=== PATIENT | female | born 1970 | race Caucasian/White ===

== ENCOUNTER 2021-03-28 07:53 | Outpatient (REF) | payer OTHER, SELFPAY ==
--- NOTE | ~2021-03-28 | MM_ITS ---
EXAMINATION: MM SCREENING DIGITAL BREAST TOMOSYNTHESIS, BILATERAL CLINICAL INFORMATION: Screening. Asymptomatic. The lifetime risk of breast cancer based on the Tyrer-Cuzick Model is 9%. COMPARISON: Mammography: 03/26/2020, 07/16/2018, 06/19/2015 TECHNIQUE: Digital breast tomosynthesis is performed in both the craniocaudal and mediolateral oblique views along with computer-aided detection (CAD). Synthesized 2D images are generated from the tomosynthesis. FINDINGS: There are scattered areas of fibroglandular density (ACR BI-RADS breast composition Category b). There are no significant masses, abnormal calcifications, or other abnormalities. Parenchymal pattern is similar to prior studies. No developing density. No significant changes. MM/MM tomosynthesis screening BI IMPRESSION: No mammographic evidence of malignancy. ASSESSMENT: BI-RADS 1: Negative RECOMMENDATION: Routine annual mammography screening. This patient's information was entered into a reminder system with a target due date for their next mammogram.
== END 2021-03-28 07:54 | disposition home or self-care (01) ==
LOC: HO.MAMMO 07:53
PROVIDERS: PCP Internal Medicine; Visit Provider Internal Medicine
DX: Z12.31 Encounter for screening mammogram for malignant neoplasm of breast (principal)
CPT/HCPCS: 77063; 77067

== ENCOUNTER 2025-06-15 15:12 | Outpatient (AMB) | payer OTHER, SELFPAY ==
--- NOTE | 2025-06-15 15:21 | A.OFFPC_ITS ---
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 Required: No Accompanied by: Self / Same As Patient Allergies ciprofloxacin (From CIPRO) Allergy (Intermediate, Verified 06/15/25 16:18) HIVES Sulfa (Sulfonamide Antibiotics) (SULFA (SULFONAMIDE ANTIBIOTICS)) Allergy (Intermediate, Verified 06/15/25 16:18) HIVES, rash tramadol (From ULTRAM) Allergy (Intermediate, Verified 06/15/25 16:18) HIVES sulfamethoxazole (From Bactrim) Allergy (Unknown, Verified 06/15/25 16:18) RASH trimethoprim (From Bactrim) Allergy (Unknown, Verified 06/15/25 16:18) RASH venlafaxine Allergy (Unknown, Verified 06/15/25 16:18) rash Environmental Allergy (Unknown, Uncoded 06/15/25 16:18) Unknown Medication List - Last Reconciled 06/15/25 by Jaqui Zayas PA-C albuterol sulfate 90 mcg/actuation 2 inhalations inhalation Q6H PRN amlodipine 5 mg PO DAILY escitalopram oxalate 5 mg PO DAILY gabapentin 100 mg PO BEDTIME leflunomide 20 mg PO DAILY levothyroxine 50 mcg PO QAM meloxicam 15 mg PO DAILY metformin 500 mg PO rimegepant (Nurtec ODT) 75 mg PO Q OTHER DAY Tobacco use date assessed: 06/15/25 Dental Screening Dental Screen Date: 06/15/25 Did you have a dental visit in the last 12 months?: No Did you have a dental problem in the last 6 months where you did not have access to dental care?: No Was dental information given to patient?: Patient has dentist (has dentures) HPI HPI Comments History of Present Illness Details History of Present Illness The patient is a 55-year-old individual presenting for an annual physical exam. The patient has a history of anxiety, premature menopause, impaired fasting glucose, mixed dyslipidemia, seasonal allergies, endometriosis, hypothyroidism, obesity, and genital herpes. The patient's only prior surgery was a laparoscopic procedure. The patient reports a family history of prostate cancer in the father. The mother is alive and has a history of asthma, diabetes, early menopause, stroke, seizures, and endometrial cancer. Regarding health maintenance, the patient's last mammogram was over a year ago and a Cologuard test was negative two years ago. The patient does not currently have a sheet metal worker helper. Current medications include albuterol for asthma, amlodipine 5 mg for blood pressure, escitalopram 5 mg, levothyroxine 50 mcg, meloxicam 15 mg, metformin 500 mg, and Nurtec ODT. The patient is out of gabapentin 100 mg and requires a refill. Leflunomide is no longer being taken. The patient reports experiencing chronic, generalized pain and was previously told it could be fibromyalgia. The patient has also had a cough for approximately one week. The patient had a history of mitral valve prolapse when younger but has not had subsequent follow-up. The patient is a non-smoker. The patient denies any leg swelling with amlodipine use, black or bloody stools, unintentional weight loss, chest pain, or shortness of breath with exertion or when lying flat. Social History - Employment: The patient works in [employer]. - Substance Use: The patient is a non-sm oker. [facility] Medical History Chronic pain syndrome Bronchitis Healthcare maintenance Annual physical exam Heart murmur Severe obesity with body mass index (BMI) of 36.0 to 36.9 with serious comorbidity Type 2 diabetes mellitus with hemoglobin A1c goal of less than 7.0% Joint pain Joint pain in fingers of both hands Anxiety Menopause, premature Obesity Impaired fasting glucose Mixed dyslipidemia Environmental and seasonal allergies Herpes genitalis Endometriosis Acquired hypothyroidism Surgical History Status post laparoscopic surgery Family History Father Cancer of prostate Mother Asthma Early menopause occurring in patient age younger than 45 years Stroke Diabetes mellitus Seizure Endometrial cancer Maternal Grandfather No problems noted. Maternal Grandfather No problems noted. Brother No problems noted. Social History Housing: Apartment Alcohol intake: current Alcohol intake frequency: holidays/special occasions only Patient Tobacco Use Status: Never used Tobacco service: No Current occupational status: employed Cognitive needs: No Hearing needs: No Vision needs: Yes (rx glasses) Questionnaire PHQ-9 Over the last 2 weeks, how often have you been bothered by any of the following problems? 1. Little interest or pleasure in doing things: not at all 2. Feeling down, depressed, or hopeless: not at all 3. Trouble falling or staying asleep, or sleeping too much: not at all 4. Feeling tired or having little energy: not at all 5. Poor appetite or overeating: not at all 6. Feeling bad about yourself - or that you are a failure or have let yourself or your family down: not at all 7. Trouble concentrating on things, such as reading the newspaper or watching television: not at all 8. Moving or speaking so slowly that other people could have noticed. Or the opposite - being so fidgety or restless that you have been moving around a lot more than usual: not at all 9. Thoughts that you would be better off or of hurting yourself in some way: not at all Total score: 0 Depression Screening Interpretation: Negative Depression Screening Done: Yes 11199 - PHQ-9 Billing: Yes Source: Developed by Drs. Natalio Shah, Kia Mckenzie, Luis Grey and colleagues, with an educational jake from [employer]. Thrive Questionnaire Date Thrive assessed: 06/15/25 I am a: Patient What is your living situation today?: I have a steady place to live Within the past 12 months, did the food you bought not last and you didn't have the money to get more?: Never true Within the past 12 months, did you worry whether your food would run out before you got money to buy more?: Never true Do you have trouble paying for medicines?: No Do you have trouble getting transportation to medical appointments?: No Do you have trouble paying your heating and electricity bill?: No Do you have trouble taking care of your child, family member or friend?: No Do you have trouble with day-to-day activities such as bathing, preparing meals, shopping, managing finances, etc.?: No Are you currently unemployed and looking for a job?: No Are you interested in more education?: No Please select the resources that you would like help with: None THRIVE Score: 0 AUDIT C Alcohol Use Questionnaire (AUDIT-C) 1. How often do you have a drink containing alcohol?: Monthly or less 2. How many drinks containing alcohol do you have on a typical day when you are drinking?: 1 or 2 3. How often do you have six or more drinks on one occasion?: Never Total Score: 1 Score Reviewed/Action Taken: No RITESH-7 AMB Questionnaire RITESH-7 Date RITESH - 7 assessed: 06/15/25 Feeling nervous, anxious, or on edge: 0 = Not at all Not being able to stop or control worryin = Not at all Worrying too much about different things: 0 = Not at all Trouble relaxin = Not at all Being so restless that it is hard to sit still: 0 = Not at all Becoming easily annoyed or irritable: 0 = Not at all Feeling afraid as if something awful might happen: 0 = Not at all Total RITESH-7 score (0-4 normal; 5-9 mild; 10-14 moderate; 15-21 severe): 0 Source: Developed by Drs. Natalio Shah, Kia Mckenzie, Luis Grey and colleagues, with an educational jake from [employer]. RITESH-7 Assessment Billing RITESH-7 Assessment Tool: RITESH-7 Assessment 35808 Review of Systems Narrative Review of Systems - General: Denies unintentional weight loss. - Respiratory: Reports a cough for the past week. Denies shortness of breath on exertion or orthopnea. - Cardiovascular: Denies chest pain or leg swelling. - Gastrointestinal: Denies black or bloody stools. - Musculoskeletal: Reports generalized joint pain. Const All systems reviewed & are unremarkable except as noted in HPI and below Physical exam (Primary Care) Vital Signs: Last Vital Signs Temp 98.1 F 06/15/25 16:03 Pulse 94 06/15/25 16:03 Resp 14 06/15/25 16:03 BP 143/67 H 06/15/25 16:03 Pulse Ox 99 06/15/25 16:03 Oxygen Delivery Method Room Air 06/15/25 16:03 Care Plan Goal for BP management: <140/90 patient to continue taking her amlodipine 5 mg keep a blood pressure diary and return in 2 weeks with blood pressure diary BMI result Body Mass Index 36.7 BMI Assessment/Plan discussion: High BMI High, discussed plan: lifestyle, weight reduction, dietary, physical activity, alcohol moderation and other Tobacco/Smoking Status: Tobacco use Status Tobacco use date assessed 06/15/25 06/15/25 15:23 Patient Tobacco Use Status Never used Tobacco 06/15/25 16:12 PHQ-9: PHQ-9 Score PHQ-9: Total score 0 06/15/25 16:20 Depression Screening Interpretation: Negative Thrive Assessment: Date of Thrive Assessment Date Thrive assessed 06/15/25 06/15/25 15:23 Narrative Physical Exam Appearance: Alert. Oriented X3. No acute distress. Head: Normal external exam. Normocephalic. Atraumatic. Eyes: Pupils are equal, round, and reactive to light. Extraocular movements intact. Conjunctiva and sclera normal. Eyelids normal. Ears: External auditory canal normal. Tympanic membranes normal. Only a little bit of wax noted; recommend peroxide for cleaning. Throat: Pharynx normal. Uvula midline. Moist mucous membranes. Throat slightly congested; patient has been coughing for about a week. Neck: Normal inspection. Neck supple. Full range of motion. No adenopathy. Thyroid Normal. No meningeal signs. No neck mass noted. Cardiovascular: Normal heart rate and rhythm. Heart sound normal. Slight murmur noted. No leg swelling. Blood pressure was 143/67 initially, then 147/79 upon retake. Pulse 83. Plan to monitor blood pressure at home for two weeks. Respiratory: No respiratory distress. Painless inspiration. Breath sounds slightly congested, indicating possible bronchitis. No wheezes/rales/rhonchi noted. Chest nontender. No accessory muscle usage noted or decreased air movement noted. Abdomen: Soft and nontender. Bowel sounds normal in all 4 quadrants. No distention noted. No organomegaly noted. No visible injury noted. Back: No costovertebral angle tenderness. Full range of motion noted. Skin: Skin warm and dry. Normal skin color. Normal skin turgor. No rashes/lesions/lacerations noted. Bruise on finger from previous injury. Extremities: No lower extremity edema. Extremities exhibit normal range of motion. Extremities nontender. Neuro: Oriented X 3. No motor deficit. No sensory deficit. Reflexes normal. Results AMB Hemoglobin A1c AMB Hemoglobin A1c 5.8 % Last Edit by SURAJ Ladd on 06/15/25 16:29 Results Reviewed Results Reviewed: Results - Labs: Hemoglobin A1c is 5.8%. Coding Level of Care Code New Pt Level 4 (39317) New Pt Prev Care 40-64y(13733) Diagnoses Annual physical exam Z00.00 Healthcare maintenance Z00.00 Bronchitis J40 Heart murmur R01.1 Chronic pain syndrome G89.4 Severe obesity with body mass index (BMI) of 36.0 to 36.9 with serious comorbidity E66.01; Z68.36 Additional Codes PHQ-9 - 26453 - PHQ-9 Billing: Yes ([id number]) RITESH-7 Assessment Billing - RITESH-7 Assessment Tool: RITESH-7 Assessment 29645 ([id number]) Assessment & Plan Assessment & Plan (1) Annual physical exam: Code(s): Z00.00 - Encounter for general adult medical examination without abnormal findings Category: Medical (2) Healthcare maintenance: Code(s): Z00.00 - Encounter for general adult medical examination without abnormal fin dings Category: Medical Plan: A referral will be placed for a mammogram and to establish care with a gy necologist. A discussion was had about repeating the Cologuard test as it has been two years since the last one. Comprehensive fasting blood work will be ordered, including a CBC, CMP, magnesium, ESR, CRP, lipid panel, TSH, urinalysis with microalbumin, vitamin B12, and vitamin D. The influenza vaccine will be deferred for two weeks until the patient's acute illness resolves. (3) Bronchitis: Code(s): J40 - Bronchitis, not specified as acute or chronic Category: Medical Plan: The patient reports a cough for one week and has congested lungs on exam, consistent with acute bronchitis. A 7 to 10-day course of Augmentin will be prescribed. (4) Heart murmur: Code(s): R01.1 - Cardiac murmur, unspecified Category: Medical Plan: A slight murmur was noted on cardiac auscultation, and the patient reports a history of mitral valve prolapse. An echocardiogram will be ordered to further evaluate the murmur. (5) Chronic pain syndrome: Code(s): G89.4 - Chronic pain syndrome Category: Medical Plan: The patient reports chronic, generalized pain, with a previous suspected diagnosis of fibromyalgia. To investigate for an underlying autoimmune disorder, an MELISSA and rheumatoid factor will be ordered. (6) Severe obesity with body mass index (BMI) of 36.0 to 36.9 with serious comorbidity: Code(s): E66.01 - Morbid (severe) obesity due to excess calories; Z68.36 - Body mass index [BMI] 36.0-36.9, adult Category: Medical Plan: The patient has a BMI of 36, classifying as obesity. The option of a weight-loss injection, Zepbound, was discussed, and a prescription will be sent to determine insurance coverage. If not approved, a referral to a weight asset management coordinator will be considered. Plan Plan Patient was informed and verbally consented to the use of an ambient scribe for clinic note documentation during this visit. 1. Health Maintenance A referral will be placed for a mammogram and to establish care with a sheet metal worker helper. A discussion was had about repeating the Cologuard test as it has been two years since the last one. Comprehensive fasting blood work will be ordered, including a CBC, CMP, magnesium, ESR, CRP, lipid panel, TSH, urinalysis with microalbumin, vitamin B12, and vitamin D. The influenza vaccine will be deferred for two weeks until the patient's acute illness resolves. 2. Hypertension The patient's blood pressure was elevated on two separate readings during the visit. The patient will monitor blood pressure at home for two weeks and maintain a log. A follow-up visit is scheduled in two weeks to review the blood pressure diary and determine if an increase in the amlodipine dosage is necessary. 3. Acute Bronchitis The patient reports a cough for one week and has congested lungs on exam, consistent with acute bronchitis. A 7 to 10-day course of Augmentin will be prescribed. 4. Heart Murmur A slight murmur was noted on cardiac auscultation, and the patient reports a history of mitral valve prolapse. An echocardiogram will be ordered to further evaluate the murmur. 5. Chronic Pain Syndrome The patient reports chronic, generalized pain, with a previous suspected diagnosis of fibromyalgia. To investigate for an underlying autoimmune disorder, an MELISSA and rheumatoid factor will be ordered. 6. Obesity The patient has a BMI of 36, classifying as obesity. The option of a weight-loss injection, Zepbound, was discussed, and a prescription will be sent to determine insurance coverage. If not approved, a referral to a weight asset management coordinator will be considered. 7. Medication Reconciliation Refills for gabapentin and the albuterol inhaler will be sent to the patient's preferred pharmacy at [facility]. The patient confirmed having an adequate supply of amlodipine, escitalopram, levothyroxine, meloxicam, metformin, and Nurtec. Leflunomide, which the patient is no longer taking, will be removed from the active medication list. Discussion Notes I informed the patient that the hemoglobin A1c of 5.8% places the patient in the prediabetic range. I discussed the elevated blood pressure readings and instructed the patient to monitor them at home for two weeks before a follow-up to assess the need for adjusting the amlodipine. I explained that a slight heart murmur was detected and that an echocardiogram will be ordered for further evaluation, given the patient's reported history of mitral valve prolapse. For the chronic widespread pain, I am ordering autoimmune markers including an MELISSA and rheumatoid factor to rule out an underlying rheumatologic condition. I diagnosed the patient's cough and congestion as acute bronchitis and prescribed a course of Augmentin. We reviewed weight management options, including Zepbound, and I will submit a prescription to assess for insurance coverage. I outlined the comprehensive lab work ordered for the annual exam and informed the patient that I would call with the results within 24-48 hours of them being finalized. We agreed to defer the influenza vaccine until the follow-up appointment in two weeks, once the bronchitis has resolved. Orders: Orders Lipid Panel Today Z00.00 - Encounter for general adult medical examination without abnormal findings UA CC w/rflx Micro + Cult Today Z00.00 - Encounter for general adult medical examination without abnormal findings Vitamin B12 and Folate Today Z00.00 - Encounter for general adult medical examination without abnormal findings MM screening mammo BI Today Z12.31 - Encounter for screening mammogram for malignant neoplasm of breast C Reactive Protein Today Z00.00 - Encounter for general adult medical examination without abnormal findings Complete Blood Count Auto Diff Today Z00.00 - Encounter for general adult medical examination without abnormal findings Comprehensive [place]. Panel Fast Today Z00.00 - Encounter for general adult medical examination without abnormal findings Erythrocyte Sedimentation Rate Today Z00.00 - Encounter for general adult medical examination without abnormal findings Magnesium Today Z00.00 - Encounter for general adult medical examination without abnormal findings TSH reflex Free T4 Today Z00.00 - Encounter for general adult medical examination without abnormal findings Vitamin D 25-OH Total Today Z00.00 - Encounter for general adult medical examination without abnormal findings Microalbumin, Random (w Creat) Today E11.9 - Type 2 diabetes mellitus without complications MELISSA Reflex Titer and Pattern Today M25.50 - Pain in unspecified joint Rheumatoid Factor Today M25.50 - Pain in unspecified joint AMB Hemoglobin A1c Today E11.9 - Type 2 diabetes mellitus without complications CA echo transthoracic complete Today E78.2 - Mixed hyperlipidemia, R01.1 - Cardiac murmur, unspecified Medications: New gabapentin 100 mg PO BEDTIME 90 caps 3RF tirzepatide (weight loss) (Zepbound) for 4 weeks 2.5 mg (0.5 mL) subcut QWEEK 2 mL 0RF E11.9 - Type 2 diabetes mellitus without complications, E66.01 - Morbid (severe) obesity due to excess calories, E78.2 - Mixed hyperlipidemia, M25.50 - Pain in unspecified joint, Z68.36 - Body mass index [BMI] 36.0-36.9, adult amoxicillin-pot clavulanate 875-125 mg 1 tab PO BID 20 tabs 0RF 10 days Refilled albuterol sulfate 90 mcg/actuation 2 inhalations inhalation Q6H PRN 8.5 grams 3 RF shortness of breath or wheezing Patient Instructions: Patient Instructions - Please get your fasting blood work done at the lab. Do not eat or drink anything except water before the test. - A referral will be sent for you to get a mammogram. - A referral will be sent for you to see a sheet metal worker helper ([employer]). - Take the prescribed Augmentin antibiotic for your cough for at least 7 days. If you still feel sick after 7 days, finish the entire 10-day supply. - Check your blood pressure at home for the next two weeks. Please write down the readings in a diary and bring it to your next appointment. - Please return for a follow-up appointment in two weeks to check on your blood pressure. - You will receive a call within a month to schedule an ultrasound of your heart (echocardiogram). - The pharmacy will contact you if the weight loss injection is approved by your insurance. - You may use hydrogen peroxide in your ears to help dissolve any wax buildup. - We will give you the flu shot at your next visit in two weeks, when you are feeling better from your cough.
[2025-06-15 16:03] VITALS: BP 143/67; PULSE 94; RESP 14; TEMP 36.7; O2SAT 99; BMI 36.7
--- OUTSIDE RECORDS SUMMARY | 2025-06-15 20:30 | XMS_ITS | Clinical Summary ---
Author Organization [facility] Address [address] [place] [address] Phone Care Team Providers Care Membership Counselor Name Role Phone Physician, No Pcp Primary Care Provider Unavaila ble Allergies Active Allergy Reactions Criticality Noted Date Comments Apple Hives 01/28/2025 Sulfamethoxazole-Trimethoprim 2024 Ciprofloxacin 01/27/2025 Medications albuterol HFA (PROAIR HFA ; PROVENTIL HFA ; VENTOLIN HFA) 90 mcg/actuation inhaler Inhale 1 puff by mouth every 4 (four) hours if needed. 05/10/20 24 Active amLODIPine (NORVASC) 5 mg tablet Take 1 tablet (5 mg total) by mouth 1 (one) time each day. Active escitalopram (LEXAPRO) 5 mg tablet Take 1 tablet (5 mg total) by mouth 1 (one) time each day. Active gabapentin (NEURONTIN) 100 mg capsule Take 1 capsule (100 mg total) by mouth 3 (three) times a day if needed. Active rosuvastatin (CRESTOR) 10 mg tablet Take 1 tablet (10 mg total) by mouth 1 (one) time each day. Active metFORMIN (GLUCOPHAGE) 500 mg tablet Take 2 tablets (1,000 mg total) by mouth 2 (two) times a day with meals. 12/28/19 25 Active Nurtec 75 mg dispersible tabletIndicatio ns:Chronic migraine without aura without status migrainosus, not intractable TAKE ONE (1) TABLET BY MOUTH ONCE DAILY NEEDED FOR MIGRAINE 16 tablet 2 06/13/20 25 Active rimegepant (NURTEC) 75 mg dispersible tabletIndicatio ns:Chronic migraine without aura without status migrainosus, not intractable Take 1 tablet (75 mg total) by mouth 1 (one) time if needed for migraine. 15 tablet 2 03/13/20 25 025 Discontinued Active Problems Problem Noted Date Diagnosed Date Migraine 01/28/2025 Resolved Problems Problem Noted Date Diagnosed Date Resolved Date Transient ischemic attack 01/28/2025 Medical History Medical History Date Comments Diabetes mellitus (CMS/HCC V24, CMS/HCC V28) Disease of thyroid gland Social History Tobacco Use Types Packs/Day Years Used Date Smoking Tobacco: Never Assessed Comments Unknown Sex and Gender Information Value Date Recorded Sex Assigned at Not on file Legal Sex Female 6:08 PM EDT Gender Identity Not on file Sexual Orientation Not on file Obstetrics History Last Filed Vital Signs Vital Sign Reading Time Taken Comments Blood Pressure 138/80 01/28/2025 10:18 PM EDT Pulse 65 01/28/2025 10:18 PM EDT Temperature 36.6 C (97.9 F) 01/28/2025 10:18 PM EDT Respiratory Rate 16 01/28/2025 10:18 PM EDT Oxygen Saturation 99% 01/28/2025 10:18 PM EDT Inhaled Oxygen Concentration - - Weight 81.6 kg (180 lb) 01/27/2025 6:17 PM EDT Height 162.6 cm (5' 4 ) 01/27/2025 6:17 PM EDT Body Mass Index 30.9 01/27/2025 6:17 PM EDT Plan of Treatment Health Maintenance Due Date Last Done Comments Breast Cancer Screening 1971 Colorectal Cancer Screening: Colonoscopy 1971 Hepatitis B Vaccines (1 of 3 - 19+ 3-dose series) 1990 Pneumococcal Vaccine: 50+ Years (1 of 2 - PCV) 1990 Cervical Cancer Screening: P ap Smear 1992 RSV Immunization Adult Patients (1 - Risk 50-74 years 1-dose series) 2021 Zoster Vaccines (1 of 2) 2021 Depression Screening 07/27/2024 HIV Screening 01/27/2025 Hepatitis C Screening 01/27/2025 Social Influencers of Health Screening 01/27/2025 COVID-19 Vaccine (3 - 2024-2 6 season) 2025 06/15/2021, 07/26/2020 Influenza Vaccine (#1) 2025 8, 05/07/2017, 07/30/2016 Hypertension/CHF/CAD Annual BMP Blood Test 01/28/2026 01/28/2025, 01/27/2025 DTaP,Tdap,and Td Vaccines (2 - Td or Tdap) 01/21/2028 01/20/2018 Cholesterol Screening (Lipid Panel) 01/28/2030 01/28/2025 HIB Vaccines Aged Out No longer eligi ble based on patient's age to complete this topic HPV Vaccines Aged Out No longer eligi ble based on patient's age to complete this topic Hepatitis A Vaccines Aged Out No long er eligible based on patient's age to complete this topic IPV Vaccines Aged Out No longer eligi ble based on patient's age to complete this topic MMR Vaccines Aged Out No longer eligi ble based on patient's age to complete this topic Meningococcal ACWY Vaccine Aged Out N o longer eligible based on patient's age to complete this topic Meningococcal B Vaccine Aged Out No l onger eligible based on patient's age to complete this topic RSV Immunization Patients Under 20 months Aged Out No longer eligible b ased on patient's age to complete this topic Varicella Vaccines Aged Out No longer eligible based on patient's age to complete this topic Procedures Procedure Name Priority Date/Time Associated Diagnosis Comments BASIC METABOLIC PANEL Routine 01/28/2025 6:46 AM EDT LIPID PANEL WITH REFLEX TO DIRECT LDL Routine 01/28/2025 6:46 AM EDT from Last 3 Months or Most Recently Relevant to Health Maintenance Results * (ABNORMAL) Lipid panel with reflex to direct LDL (01/28/2025 6:46 AM EDT) [facility] Signature Cholesterol 261(H) 0 - 200 mg/dL LAB CHEMISTRY METHOD 01/28/2025 7:58 AM EDT [facility] Triglycerides 149 <150 mg/dL LAB CHEMISTRY METHOD 01/28/2025 7:58 AM EDT [facility] HDL 51 37 - 92 mg/dL LAB CHEMISTRY METHOD 01/28/2025 7:58 AM EDT [facility] LDL Calculated 180(H) 50 - 130 mg/dL LAB CHEMISTRY METHOD 01/28/2025 7:58 AM EDT [facility] VLDL Cholesterol Freedom 29.8 mg/dL LAB CHEMISTRY METHOD 01/28/2025 7:58 AM EDT [facility] Comment:No established refer ence range. Blood Venous blood specimen / Unknown Venipuncture / Unknown 01/28/2025 6:46 AM EDT 01/28/2025 7:21 AM EDT Aure Dickinson MD LAB BLOOD ORDERABLE S Final Result [facility] [address] [place] [address], [place] [phone] * Basic metabolic panel (01/28/2025 6:46 AM EDT) Sodium 139 135 - 145 mmol/L LAB CHEMISTRY METHOD 01/28/2025 7:58 AM EDT [facility] Potassium 3.8 3.5 - 5.1 mmol/L LAB CHEMISTRY METHOD 01/28/2025 7:58 AM EDT [facility] Chloride 104 98 - 107 mmol/L LAB CHEMISTRY METHOD 01/28/2025 7:58 AM EDT [facility] CO2 27 24 - 32 mmol/L LAB CHEMISTRY METHOD 01/28/2025 7:58 AM EDT [facility] Anion Gap 8 5 - 14 LAB CHEMISTRY METHOD 01/28/2025 7:58 AM EDT [facility] Glucose 93 70 - 199 mg/dL LAB CHEMISTRY METHOD 01/28/2025 7:58 AM EDT [facility] BUN 13 7 - 17 mg/dL LAB CHEMISTRY METHOD 01/28/2025 7:58 AM EDT [facility] Creatinine 0.80 0.50 - 1.00 mg/dL LAB CHEMISTRY METHOD 01/28/2025 7:58 AM EDT [facility] eGFR 88 >=60 mL/min/1. 73m2 LAB CHEMISTRY METHOD 01/28/2025 7:58 AM EDT [facility] Comment:Calculation based on the Chronic Kidney Disease Epidemiology Collaboration (CKD-EPI) equation refit without adjustment for race. BUN/Creatinine Ratio 16.3 12.0 - 20.0 LAB CHEMISTRY METHOD 01/28/2025 7:58 AM EDT [facility] Calcium 8.7 8.4 - 10.2 mg/dL LAB CHEMISTRY METHOD 01/28/2025 7:58 AM EDT [facility] Blood Venous blood specimen / Unknown Venipuncture / Unknown 01/28/2025 6:46 AM EDT 01/28/2025 7:21 AM EDT Angela Xenia Dickinson MD LAB BLOOD ORDERABLE S Final Result [facility] [address] [place] [address], [place] [phone] from Last 3 Months or Most Recently Relevant to Health Maintenance Insurance [employer] Advance Directives * Full Code - Confirmed (Latest Code Status on File) Date Activated Date Inactivated Comments 01/28/2025 6:22 AM 01/29/2025 4:21 AM This code stat us was ascertained in the following way: Code status discussion: discussion with patient To update the patient's code status, place a code status order. Do not modify or discontinue any currently active code status orders. Care Teams Membership Counselor Relationship Specialty Start Date End Date Physician, No Pcp PCP - General 01/27/25
--- OUTSIDE RECORDS SUMMARY | 2025-06-15 20:30 | XMS_ITS ---
Author Name [facility] Organization Unknown Results Test Name/Text Value Interpretation Date Range Source Est. average glucose Bld gHb Est-mCnc 126.0 mg/dL 01/28/2025 [facility] HbA1c MFr Bld 6.0 % Above high normal 01/28/2025 - 5.7 [facility] Troponin I SerPl HS-mCnc 4.0 ng/L 01/28/2025 0 - 14 [facility] Magnesium SerPl-mCnc 1.8 mg/dL 01/28/2025 1.7 - 2.8 [facility] Phosphate SerPl-mCnc 3.3 mg/dL 01/28/2025 2.5 - 4.5 [facility] Chloride SerPl-sCnc 104.0 mmol/L 01/28/2025 98 - 1 07 [facility] Glucose SerPl-mCnc 93.0 mg/dL 01/28/2025 70 - 199 [facility] Sodium SerPl-sCnc 139.0 mmol/L 01/28/2025 135 - 14 5 [facility] Calcium SerPl-mCnc 8.7 mg/dL 01/28/2025 8.4 - 10.2 [facility] Creat SerPl-mCnc 0.8 mg/dL 01/28/2025 0.5 - 1 CT [facility] BUN SerPl-mCnc 13.0 mg/dL 01/28/2025 7 - 17 [facility] eGFRcr SerPlBld CKD-EPI 2020 88.0 mL/min/1.73m2 01/28/2025 - [facility] BUN/Creat SerPl 16.3 01/28/2025 12 - 20 [facility] CO2 SerPl-sCnc 27.0 mmol/L 01/28/2025 24 - 32 [facility] Potassium SerPl-sCnc 3.8 mmol/L 01/28/2025 3.5 - 5.1 [facility] Anion Gap SerPl Calc-sCnc 8.0 01/28/2025 5 - 14 [facility] VLDLc SerPl Calc-mCnc 29.8 mg/dL 01/28/2025 [facility] Trigl SerPl-mCnc 149.0 mg/dL 01/28/2025 - 150 [facility] HDLc SerPl-mCnc 51.0 mg/dL 01/28/2025 37 - 92 [facility] LDLc SerPl Calc-mCnc 180.0 mg/dL Above high normal 01/28/2025 50 - 130 [facility] Cholest SerPl-mCnc 261.0 mg/dL Above high normal 01/28/2025 0 - 200 [facility] Platelet # Bld Auto 265.0 K/mcL 01/28/2025 150 - 4 50 [facility] RBC # Bld Auto 4.5 M/mcL 01/28/2025 4.2 - 5.4 [facility] MCHC RBC Auto-EntMCnc 33.0 g/dL 01/28/2025 32 - 36 [facility] PMV Bld Auto 8.4 FL 01/28/2025 7.4 - 11.4 [facility] MCH RBC Qn Auto 30.2 pcg 01/28/2025 25 - 33 [facility] RBC Auto 91.7 FL 01/28/2025 78 - 100 [facility] N Hgb Bld-mCnc 13.6 g/dL 01/28/2025 12.5 - 16 [facility] Hct VFr Bld Auto 41.3 % 01/28/2025 37 - 47 CT [facility] WBC # Bld Auto 6.2 K/mcL 01/28/2025 4 - 10.5 [facility] RDW RBC Auto 13.1 % 01/28/2025 12.1 - 16.2 [facility] oxyCODONE Ur Ql Scn Negative 01/28/2025 - [facility] Amphet Ur Ql Scn Negative 01/28/2025 - [facility] Cocaine Ur Ql Scn Negative 01/28/2025 - C [facility] Opiates Ur Ql Scn Positive Abnormal 01/28/2025 - C [facility] fentaNYL Ur Ql Negative 01/28/2025 - [facility] Barbiturates Ur Ql Scn Negative 01/28/2025 - [facility] PCP Ur Ql Scn Negative 01/28/2025 - [facility] Benzodiaz Ur Ql Scn Negative 01/28/2025 - [facility] Cannabinoids Ur Ql Scn Negative 01/28/2025 - [facility] pH Ur 7.0 pH 01/28/2025 5 - 8 [facility] Sp Gr Ur 1.02 01/28/2025 1.005 - 1.03 [facility] Prot Ur Strip-mCnc Negative 01/28/2025 - [facility] Nitrite Ur Ql Negative 01/28/2025 - [facility] Hgb Ur Ql Negative 01/28/2025 - [facility] Color Ur Yellow 01/28/2025 - [facility] Glucose Ur Ql Negative 01/28/2025 - [facility] Leukocyte esterase Ur Ql Strip Negative 01/28/2025 - [facility] Ketones Ur-mCnc Negative 01/28/2025 - [facility]_ [facility] Clarity Ur Slightly Cloudy Abnormal 01/28/2025 - CT [facility] eGFRcr SerPlBld CKD-EPI 2020 58.0 mL/min/1.73m2 Below low normal 01/27/2025 - [facility] Bilirub SerPl-mCnc 0.4 mg/dL 01/27/2025 0.3 - 1 [facility] Prot SerPl-mCnc 7.7 g/dL 01/27/2025 6.4 - 8.5 [facility]_ [facility] ALP SerPl-cCnc 80.0 unit/L 01/27/2025 34 - 104 CT [facility] Glucose SerPl-mCnc 115.0 mg/dL 01/27/2025 70 - 199 [facility] BUN SerPl-mCnc 17.0 mg/dL 01/27/2025 7 - 17 [facility] Chloride SerPl-sCnc 102.0 mmol/L 01/27/2025 98 - 1 07 [facility] ALT SerPl-cCnc 15.0 unit/L 01/27/2025 7 - 52 CT [facility] AST SerPl-cCnc 19.0 unit/L 01/27/2025 5 - 40 [facility] Creat SerPl-mCnc 1.13 mg/dL Above high normal 01/27/2025 0.5 - 1 [facility] Anion Gap SerPl Calc-sCnc 7.0 01/27/2025 5 - 14 [facility] BUN/Creat SerPl 15.0 01/27/2025 12 - 20 [facility] Sodium SerPl-sCnc 139.0 mmol/L 01/27/2025 135 - 14 5 [facility] CO2 SerPl-sCnc 30.0 mmol/L 01/27/2025 24 - 32 [facility] Calcium SerPl-mCnc 9.5 mg/dL 01/27/2025 8.4 - 10.2 [facility] Potassium SerPl-sCnc 4.2 mmol/L 01/27/2025 3.5 - 5.1 [facility] Albumin SerPl-mCnc 4.2 g/dL 01/27/2025 3.5 - 5 [facility] Ethanol SerPl-mCnc <10.0 mg/dL 01/27/2025 0 - 10 [facility] CK SerPl-cCnc 96.0 unit/L 01/27/2025 30 - 135 [facility] TSH SerPl DL<=0.005 mIU/L-aCnc 3.2 mcIU/mL 01/28/2025 0.45 - 5.33 [facility] T4 Free SerPl-mCnc 0.83 ng/dL 01/28/2025 0.5 - 1.3 [facility] Troponin I SerPl HS-mCnc 3.0 ng/L 01/28/2025 0 - 14 [facility] HCG SerPl Ql Negative 01/27[facility]20[facility] D[facility] PPP DDU-mCnc <150.0 ng/mL DDU 01/27/2025 - 231 [facility] Lymphocytes # Bld Auto 2.83 K/mcL 01/27/2025 1 - 3.2 [facility] RDW RBC Auto 12.8 % 01/27/2025 12.1 - 16.2 [facility] WBC # Bld Auto 7.4 K/mcL 01/27/2025 4 - 10.5 [facility] Hct VFr Bld Auto 43.8 % 01/27/2025 37 - 47 CT [facility] Hgb Bld-mCnc 14.9 g/dL 01/27/2025 12.5 - 16 [facility] Basophils NFr Bld Auto 0.5 % 01/27/2025 0 - 2 [facility] RBC # Bld Auto 4.81 M/mcL 01/27/2025 4.2 - 5.4 [facility] Lymphocytes NFr Bld Auto 38.2 % 01/27/2025 20 - 48 [facility] Eosinophil NFr Bld Auto 4.7 % 01/27/2025 0 - 6 [facility] MCHC RBC Auto-EntMCnc 34.0 g/dL 01/27/2025 32 - 36 [facility] Eosinophil # Bld Auto 0.35 K/mcL 01/27/2025 0 - 0.5 [facility] Neutrophils NFr Bld Auto 50.2 % 01/27/2025 44 - 74 [facility] Platelet # Bld Auto 295.0 K/mcL 01/27/2025 150 - 4 50 [facility] MCH RBC Qn Auto 31.0 pcg 01/27/2025 25 - 33 [facility] Monocytes # Bld Auto 0.47 K/mcL 01/27/2025 0 - 0.8 [facility] Neutrophils # Bld Auto 3.71 K/mcL 01/27/2025 1.8 - 7.8 [facility] Monocytes NFr Bld Auto 6.3 % 01/27/2025 2 - 12 [facility] PMV Bld Auto 9.9 FL 01/27/2025 7.4 - 11.4 [facility] RBC Auto 91.1 FL 01/27/2025 78 - 100 [facility] Basophils # Bld Auto 0.04 K/mcL 01/27/2025 0 - 0.2 [facility] Glucose Bld-mCnc 104.0 mg/dL 01/27/2025 70 - 199 [facility] History of Medication Use Medication Directions Dispensed Refills Start Date End Date Stat rimegepant (NURTEC) 75 mg dispersible tablet Take 1 tablet (75 mg total) by mouth 1 (one) time if needed for migraine. 03/13/2025 active atorvastatin (LIPITOR) tablet 40 mg 40 mg, oral, Nightly, First dose on 01/28/25 at 2100 01/29/2025 active ibuprofen (ADVIL,MOTRIN) tablet 600 mg 600 mg, oral, Once, On 01/28/25 at 0337, For 1 dose, Administer with food or milk to decrease GI upset 01/28/2025 01/28/2025 completed iopamidoL (ISOVUE-370) 370 mg iodine /mL (76 %) injection 100 mL 100 mL, intravenous, Once in imaging, Starting on Thu01/27/25 at 2314, For 1 dose 01/28/2025 01/28/2025 completed perflutren lipid microsphere (DEFINITY) 1.3 mL in sodium chloride 0.9% 8.7 mL injection 10 mL, intravenous, Administer over 10 Minutes, Once in imaging, Starting on 01/28/25 at 1027, For 1 dose, CV Medication Orders 01/28/2025 01/28/2025 completed sodium chloride 0.9 % infusion 75 mL/hr, intravenous, Continuous, Starting on 01/28/25 at 0622, For 10 hours 01/28/2025 01/28/2025 completed acetaminophen (TYLENOL) tablet 650 mg 01/28/2025 active albuterol 2.5 mg /3 mL (0.083 %) nebulizer solution 2.5 mg 01/28/2025 active amLODIPine (NORVASC) tablet 5 mg 5 mg, oral, Daily, First dose on 01/28/25 at 0900 01/28/2025 active aspirin EC tablet 81 mg 81 mg, oral, Daily, First dose on 01/28/25 at 0900, Do not crush, chew, or split. 01/28/2025 active enoxaparin (LOVENOX) injection 40 mg 01/28/2025 active escitalopram (LEXAPRO) tablet 5 mg 5 mg, oral, Daily, First dose on 01/28/25 at 0900 01/28/2025 active gabapentin (NEURONTIN) capsule 100 mg 100 mg, oral, Every 8 hours scheduled, First dose on 01/28/25 at 0629 01/28/2025 active ondansetron (PF) (ZOFRAN) injection 4 mg 4 mg, intravenous, Every 6 hours PRN, vomiting, nausea, Starting on 01/28/25 at 0621, -ONLY give IV if patient is unable to take orally. -If inadequate response within 30 minutes, proceed to next-line agent or contact provider if no further options ordered. 01/28/2025 active polyethylene glycol (MIRALAX) packet 17 g 01/28/2025 active sodium chloride 0.9 % bolus 1,000 mL 1,000 mL, intravenous, at 2,000 mL/hr, Administer over 30 Minutes, Once, On Thu01/27/25 at 1928, For 1 dose 01/27/2025 01/28/2025 completed morphine injection 4 mg 4 mg, intravenous, Once, On Thu01/27/25 at 1928, For 1 dose 01/27/2025 01/27/2025 completed metFORMIN (GLUCOPHAGE) 500 mg tablet Take 2 tablets (1,000 mg total) by mouth 2 (two) times a day with meals. 12/27/2024 active albuterol HFA (PROAIR HFA ; PROVENTIL HFA ; VENTOLIN HFA) 90 mcg/actuation inhaler Inhale 1 puff by mouth every 4 (four) hours if needed. 05/10/2024 active escitalopram (LEXAPRO) 5 mg tablet Take 1 tablet (5 mg total) by mouth 1 (one) time each day. active No known medications No known medications active rosuvastatin (CRESTOR) 10 mg tablet Take 1 tablet (10 mg total) by mouth 1 (one) time each day. active Allergies Allergen Reaction Severity Comment Documented Date Source Statu s APPLE HIVES 01/28/2025 [facility] active CIPROFLOXACIN 01/27/2025 [facility] active SULFAMETHOXAZOLE-TRIMETHO PRIM 01/27/2025 [facility] active Problems Problem Status Onset Date Problem Type Date of Resolution Source Periodic headache syndrome, not intractable active EncounterDiagnosisAct [facility] Anxiety active EncounterDiagnosisAct [facility] Migraine active 2025-01-28 ProblemAct [facility] Chronic migraine without aura without status migrainosus, not intractable active EncounterDiagnosisAct [facility] Disorientation active EncounterDiagnosisAct [facility] Screening examination for pulmonary tuberculosis active EncounterDiagnosisAct [facility] Immunizations Vaccine Date Source Lot Number Status PPD Test 10/08/2024 [facility] [id number] completed Encounters Encounter Type Encounter Reason Primary Diagnosis Location Date Ambulatory Chronic migraine without aura, not intractable, without status migrainosus Chronic migraine without aura, not intractable, without status migrainosus [facility] 03/13/2025 Emergency transfer Transient altera tion of awareness [facility] 01/28/2025 Emergency anxiety Disorientation, unspecified [facility] 01/27/2025 Ambulatory Tb Skin Test Reading Encounter f or screening for respiratory tuberculosis [facility] 10/10/2024 Ambulatory TB Skin Test Placement Encounter for screening for respiratory tuberculosis [facility] 10/08/2024 Care Team Organization Name Specialty Phone Email Start Date End Da te [facility] PHYSICIAN Primary Care 01/31/2025 [facility] PHYSICIAN Primary Care 01/31/2025 [facility] NO PHYSICIAN Primary Care 01/28/2025 [facility] NO PHYSICIAN Primary Care 01/28/2025 [facility] 01/27/[address] [facility] NO PCP Primary Care 10/08
== END 2025-06-15 16:36 | disposition home or self-care (01) ==
LOC: HO.HMCSH 15:12
PROVIDERS: PCP Physician Assistant Medical; Visit Provider Physician Assistant Medical
DX: Z00.00 Encounter for general adult medical examination without abnormal findings (principal); E66.01 Morbid (severe) obesity due to excess calories; Z68.36 Body mass index [BMI] 36.0-36.9, adult; E11.9 Type 2 diabetes mellitus without complications; J40 Bronchitis, not specified as acute or chronic; R01.1 Cardiac murmur, unspecified; G89.4 Chronic pain syndrome

== ENCOUNTER → 2025-06-15 15:12 | Outpatient (BNVA) | payer OTHER, SELFPAY | PROVIDERS: PCP Physician Assistant Medical; Visit Provider Physician Assistant Medical | DX: Z00.00 Encounter for general adult medical examination without abnormal findings (principal); J40 Bronchitis, not specified as acute or chronic; R01.1 Cardiac murmur, unspecified; G89.4 Chronic pain syndrome; E66.01 Morbid (severe) obesity due to excess calories; Z68.36 Body mass index [BMI] 36.0-36.9, adult; Z79.890 Hormone replacement therapy; Z79.84 Long term (current) use of oral hypoglycemic drugs; Z79.899 Other long term (current) drug therapy | CPT/HCPCS: 83036; 96127 ==

== ENCOUNTER 2025-07-04 06:59 | Outpatient (REF) | payer OTHER, SELFPAY ==
--- OUTSIDE RECORDS SUMMARY | 2025-07-04 07:02 | XMS_ITS | Clinical Summary ---
Author Organization [facility] Address [address] [place] [address] Phone Care Team Providers Care Quality Assurance Practice Manager Name Role Phone Physician, No Pcp Primary [...] on file Sexual Orientation Not on file Last Filed Vital Signs Vital Sign Reading [...] to direct LDL (01/28/2025 6:46 AM EDT) [facility] Cholesterol 261(H) 0 - 200 mg/dL LAB CHEMISTRY METHOD 01/28/2025 7:58 AM EDT [facility] Triglycerides 149 <150 mg/dL LAB CHEMISTRY METHOD 01/28/2025 7:58 AM EDT [facility] HDL 51 37 - 92 mg/dL LAB CHEMISTRY METHOD 01/28/2025 7:58 AM EDT [facility] LDL Calculated 180(H) 50 - 130 mg/dL LAB CHEMISTRY METHOD 01/28/2025 7:58 AM EDT [facility] VLDL Cholesterol Freedom 29.8 mg/dL LAB CHEMISTRY METHOD 01/28/2025 7:58 AM EDT [facility] Comment:No established refer ence range. Blood Venous blood specimen / Unknown Venipuncture / Unknown 01/28/2025 6:46 AM EDT 01/28/2025 7:21 AM EDT Aure Dickinson MD LAB BLOOD ORDERABLE S Final Result [facility] [address] [place] [address], [place] [phone] * Basic metabolic panel (01/28/2025 6:46 AM EDT) Sodium 139 135 - 145 mmol/L LAB CHEMISTRY METHOD 01/28/2025 7:58 AM EDT [facility] Potassium 3.8 3.5 - 5.1 mmol/L LAB CHEMISTRY METHOD 01/28/2025 7:58 AM EDT [facility] Chloride 104 98 - 107 mmol/L LAB CHEMISTRY METHOD 01/28/2025 7:58 AM EDT [facility] CO2 27 24 - 32 mmol/L LAB CHEMISTRY METHOD 01/28/2025 7:58 AM EDT [facility] Anion Gap 8 5 - 14 LAB CHEMISTRY METHOD 01/28/2025 7:58 AM EDT [facility] Glucose 93 70 - 199 mg/dL LAB CHEMISTRY METHOD 01/28/2025 7:58 AM EDT [facility] BUN 13 7 - 17 mg/dL LAB CHEMISTRY METHOD 01/28/2025 7:58 AM EDT [facility] Creatinine 0.80 0.50 - 1.00 mg/dL LAB CHEMISTRY METHOD 01/28/2025 7:58 AM EDT [facility] eGFR 88 >=60 mL/min/1. 73m2 LAB CHEMISTRY METHOD 01/28/2025 7:58 AM EDT [facility] Comment:Calculation based on the Chronic Kidney Disease Epidemiology Collaboration (CKD-EPI) equation refit without adjustment for race. BUN/Creatinine Ratio 16.3 12.0 - 20.0 LAB CHEMISTRY METHOD 01/28/2025 7:58 AM EDT [facility] Calcium 8.7 8.4 - 10.2 mg/dL LAB CHEMISTRY METHOD 01/28/2025 7:58 AM EDT [facility] Blood Venous blood specimen / Unknown Venipuncture / Unknown 01/28/2025 6:46 AM EDT 01/28/2025 7:21 AM EDT Aure Dickinson MD LAB BLOOD ORDERABLE S Final Result [facility] [address] [place] [address], [place] [phone] from Last 3 Months or Most Recently [...] currently active code status orders. Care Teams Quality Assurance Practice Manager Relationship Specialty Start Date End Date Physician, No Pcp PCP - General 01/27/25
[2025-07-04 07:13] LABS: MANUAL DIFF FLAG NO
[2025-07-04 07:28] LABS: Hematocrit 43.8 % (37.0-47.0); Hemoglobin 14.2 g/dl (12.0-16.0); Imm Gran Abs Auto 0.01 X10*3/uL (0.00-0.03); Imm Gran Pct Auto 0.2 % (0.0-0.4); Lymphocytes Absolute Auto 2.0 X10*3/uL (1.2-4.9); Mean Corpuscular HGB Conc 32.4 g/dl (31.0-35.0); Mean Corpuscular Hemoglobin 29.9 pg (27.0-33.0); Mean Corpuscular Volume 92.2 fL (80.0-98.0); NRBC Abs Auto 0.000 X10*3/uL (0.0-0.012); NRBC Pct Auto 0.0 /100WBC (0.0-0.2); Platelet Count 304 X10*3/uL (160-400); Red Blood Count 4.75 X10*6/uL (4.20-5.50); White Blood Count 4.6 X10*3/uL (4.8-10.8)
[2025-07-04 07:54] LABS: Appearance Urine Clear; Glucose Urine UA Negative (Negative); PH 6.0 (5.0-9.0); Specific Gravity - Urine 1.015 (1.005-1.025)
[2025-07-04 08:11] LABS: Alanine Aminotransferase 29 U/L (0-31); Albumin Level 4.3 g/dL (3.5-5.0); Alkaline Phosphatase 87 U/L (39-117); Anion Gap 9 (12-20); Aspartate Amino Transferase 30 U/L (5-31); Blood Urea Nitrogen 13 mg/dL (9-16); Calcium 9.5 mg/dL (8.4-10.2); Carbon Dioxide 27 mmol/L (22-29); Chloride 109 mmol/L (96-108); Cholesterol 255 mg/dL (<200); Erythrocyte Sedimentation Rate 31 MM/HR (0-20); Estimated Glomerular Filt Rate > 60; HDL Cholesterol 52 mg/dL (>40); Magnesium 1.9 mg/dL (1.6-2.6); Potassium 4.2 mmol/L (3.3-5.1); Sodium 141 mmol/L (135-145); Total Protein 7.4 g/dL (6.5-8.0); Triglycerides 205 mg/dL (<150)
[2025-07-04 08:45] LABS: Folate 7.4 ng/mL (> or = 4.0); Vitamin B12 325 pg/mL (200-900)
[2025-07-07 11:23] LABS: Anti Nuclear Antibody Pattern Nuclear, Homogeneous; Anti Nuclear Antibody Screen POSITIVE (NEGATIVE); Anti Nuclear Antibody Titer 1:80 titer
== END 2025-07-04 07:00 | disposition home or self-care (01) ==
LOC: HO.LAB 06:59
PROVIDERS: PCP Physician Assistant Medical; Visit Provider Physician Assistant Medical
DX: Z00.00 Encounter for general adult medical examination without abnormal findings (principal); E11.9 Type 2 diabetes mellitus without complications; M25.50 Pain in unspecified joint; Z13.21 Encounter for screening for nutritional disorder
CPT/HCPCS: 36415; 80053; 80061; 81003; 82043; 82306; 82570; 82607; 82746; 83735; 84443; 85025; 85652; 86038; 86039; 86140; 86431

== ENCOUNTER 2025-07-06 15:17 | Outpatient (AMB) | payer OTHER, SELFPAY ==
[2025-07-06 15:21] VITALS: BP 140/73; PULSE 92; RESP 14; TEMP 36.4; O2SAT 98; BMI 36.7
--- NOTE | 2025-07-06 15:21 | A.OFFPC_ITS ---
Vital Signs 07/06/25 15:21 07/06/25 15:39 Height 5 ft 3 in Weight 207 lb BMI 36.7 BP 140/73 H 136/74 Blood Pressure Location Rt brachial Rt brachial Position Sitting Sitting Respiration 14 Pulse 92 72 Pulse Source Pulse Oximeter Temp 97.6 F Temp Source Temporal Artery Scan Pulse Oximetry (%) 98 Oxygen Delivery Method Room Air Intake Visit Reasons: 2 wks BP follow up Color Artist Required: No Accompanied by: Self / Same As Patient Allergies ciprofloxacin (From CIPRO) Allergy (Intermediate, Verified 07/06/25 15:54) HIVES Sulfa (Sulfonamide Antibiotics) (SULFA (SULFONAMIDE ANTIBIOTICS)) Allergy (Intermediate, Verified 07/06/25 15:54) HIVES, rash tramadol (From ULTRAM) Allergy (Intermediate, Verified 07/06/25 15:54) HIVES sulfamethoxazole (From Bactrim) Allergy (Unknown, Verified 07/06/25 15:54) RASH trimethoprim (From Bactrim) Allergy (Unknown, Verified 07/06/25 15:54) RASH venlafaxine Allergy (Unknown, Verified 07/06/25 15:54) rash Environmental Allergy (Unknown, Uncoded 07/06/25 15:54) Unknown Medication List - Last Reconciled 07/06/25 by Jaqui Zayas PA-C albuterol sulfate 90 mcg/actuation 2 inhalations inhalation Q6H PRN amlodipine 5 mg PO DAILY cholecalciferol (vitamin D3) 25 mcg PO DAILY escitalopram oxalate 5 mg PO DAILY gabapentin 100 mg PO BEDTIME levothyroxine 50 mcg PO QAM meloxicam 15 mg PO DAILY metformin 500 mg PO BID 90 days rimegepant (Nurtec ODT) 75 mg PO Q OTHER DAY rosuvastatin (Crestor) 10 mg PO BEDTIME Tobacco use date assessed: 06/15/25 Dental Screening Dental Screen Date: 06/15/25 HPI HPI Comments History of Present Illness Details History of Present Illness The patient is a 55 year old female presenting for a blood pressure check. She reports her blood pressure is always elevated at doctor visits and has not checked it at home for a couple of weeks. She is currently taking amlodipine 5 mg and denies any associated leg swelling. The patient has a history of type 2 diabetes, previously diagnosed with a hemoglobin A1c over 7 approximately three years ago. Her most recent hemoglobin A1c last month was 5.8%, indicating prediabetes range. She is currently on metformin and reports doing well on it. Recent lab work shows a white blood cell count of 4.6 K/uL, which is slightly below the normal range of 4.8 K/uL. Both Erythrocyte Sedimentation Rate (ESR) and C-reactive protein (CRP) were elevated. Her rheumatoid factor was positive, but the MELISSA test is still pending. She has a referral to a feeder catcher, but the earliest appointment is in November. The patient's total cholesterol was elevated at 255 mg/dL, triglycerides at 205 mg/dL, and LDL at 162 mg/dL. She started a cholesterol medication yesterday. Her vitamin D was low at 18.6 ng/mL, for which she is taking a supplement. A prior authorization request for Zepbound for weight loss was not approved, despite diagnoses of type 2 diabetes, obesity, hypercholesterolemia, and joint pain. 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 [facility] Medical History (Updated 07/06/25 @ 15:57 by Jaqui Zayas PA-C) Hypertension Hypertriglyceridemia Pure hypercholesterolemia, unspecified Hyperlipidemia Vitamin D deficiency Rheumatoid factor positive Chronic pain syndrome Bronchitis Healthcare maintenance Annual physical exam Heart murmur Severe obesity with body mass index (BMI) of 36.0 to 36.9 with serious comorbidity Type 2 diabetes mellitus with hemoglobin A1c goal of less than 7.0% Joint pain Joint pain in fingers of both hands Anxiety Menopause, premature Obesity Impaired fasting glucose Mixed dyslipidemia Environmental and seasonal allergies Herpes genitalis Endometriosis Acquired hypothyroidism Surgical History Status post laparoscopic surgery Family History Father Cancer of prostate Mother Asthma Early menopause occurring in patient age younger than 45 years Stroke Diabetes mellitus Seizure Endometrial cancer Maternal Grandfather No problems noted. Maternal Grandfather No problems noted. Brother No problems noted. Social History Housing: Apartment Alcohol intake: current Alcohol intake frequency: holidays/special occasions only Patient Tobacco Use Status: Never used Tobacco service: No Current occupational status: employed Cognitive needs: No Hearing needs: No Vision needs: Yes (rx glasses) Questionnaire PHQ-9 Over the last 2 weeks, how often have you been bothered by any of the following problems? 1. Little interest or pleasure in doing things: not at all 2. Feeling down, depressed, or hopeless: not at all 3. Trouble falling or staying asleep, or sleeping too much: not at all 4. Feeling tired or having little energy: not at all 5. Poor appetite or overeating: not at all 6. Feeling bad about yourself - or that you are a failure or have let yourself or your family down: not at all 7. Trouble concentrating on things, such as reading the newspaper or watching television: not at all 8. Moving or speaking so slowly that other people could have noticed. Or the opposite - being so fidgety or restless that you have been moving around a lot more than usual: not at all 9. Thoughts that you would be better off or of hurting yourself in some way: not at all Total score: 0 Depression Screening Interpretation: Negative Depression Screening Done: Yes 34263 - PHQ-9 Billing: Yes Source: Developed by Drs. Natalio Shah, Kia Mckenzie, Luis Grey and colleagues, with an educational jake from [employer]. Thrive Questionnaire Date Thrive assessed: 06/15/25 I am a: Patient What is your living situation today?: I have a steady place to live Within the past 12 months, did the food you bought not last and you didn't have the money to get more?: Never true Within the past 12 months, did you worry whether your food would run out before you got money to buy more?: Never true Do you have trouble paying for medicines?: No Do you have trouble getting transportation to medical appointments?: No Do you have trouble paying your heating and electricity bill?: No Do you have trouble taking care of your child, family member or friend?: No Do you have trouble with day-to-day activities such as bathing, preparing meals, shopping, managing finances, etc.?: No Are you currently unemployed and looking for a job?: No Are you interested in more education?: No Please select the resources that you would like help with: None THRIVE Score: 0 AUDIT C Alcohol Use Questionnaire (AUDIT-C) 1. How often do you have a drink containing alcohol?: Monthly or less 2. How many drinks containing alcohol do you have on a typical day when you are drinking?: 1 or 2 3. How often do you have six or more drinks on one occasion?: Never Total Score: 1 Score Reviewed/Action Taken: No RITESH-7 AMB Questionnaire RITESH-7 Date RITESH - 7 assessed: 06/15/25 Feeling nervous, anxious, or on edge: 0 = Not at all Not being able to stop or control worryin = Not at all Worrying too much about different things: 0 = Not at all Trouble relaxin = Not at all Being so restless that it is hard to sit still: 0 = Not at all Becoming easily annoyed or irritable: 0 = Not at all Feeling afraid as if something awful might happen: 0 = Not at all Total RITESH-7 score (0-4 normal; 5-9 mild; 10-14 moderate; 15-21 severe): 0 Source: Developed by Drs. Natalio Shah, Kia Mckenzie, Luis Grey and colleagues, with an educational jake from [employer]. RITESH-7 Assessment Billing RITESH-7 Assessment Tool: RITESH-7 Assessment 19299 Review of Systems Narrative Review of Systems - Constitutional: Reports doing well. - General: Reports elevated blood pressure readings at doctor's visits. - Cardiovascular: Denies leg swelling. - Musculoskeletal: Joint pain was reported as a diagnosis for medication authorization. Const All systems reviewed & are unremarkable except as noted in HPI and below Physical exam (Primary Care) Vital Signs: Last Vital Signs Temp 97.6 F 07/06/25 15:21 Pulse 92 07/06/25 15:21 Resp 14 07/06/25 15:21 BP 140/73 H 07/06/25 15:21 Pulse Ox 98 07/06/25 15:21 Oxygen Delivery Method Room Air 07/06/25 15:21 Care Plan Goal for BP management: <140/90 at Goal BMI result Body Mass Index 36.7 BMI Assessment/Plan discussion: High BMI High, discussed plan: lifestyle, weight reduction, dietary, physical activity, alcohol moderation and other Tobacco/Smoking Status: Tobacco use Status Tobacco use date assessed 06/15/25 07/06/25 15:33 Patient Tobacco Use Status Never used Tobacco 07/06/25 15:33 PHQ-9: PHQ-9 Score PHQ-9: Total score 0 07/06/25 15:34 Depression Screening Interpretation: Negative Thrive Assessment: Date of Thrive Assessment Date Thrive assessed 06/15/25 07/06/25 15:33 Narrative Physical Exam Appearance: Alert. Oriented X3. No acute distress. Head: Normal external exam. Normocephalic. Atraumatic. Eyes: Pupils are equal, round, and reactive to light. Extraocular movements intact. Conjunctiva and sclera normal. Eyelids normal. Throat: Pharynx normal. Uvula midline. Moist mucous membranes. Neck: Normal inspection. Neck supple. Full range of motion. Cardiovascular: Normal heart rate and rhythm. Heart sound normal. No murmurs noted. Pulses normal throughout. Respiratory: No respiratory distress. Painless inspiration. Breath sounds normal. No wheezes/rales/rhonchi noted. No accessory muscle usage noted or decreased air movement noted. Back: Full range of motion noted. Skin: Skin warm and dry. Normal skin color. Extremities: Extremities exhibit normal range of motion. Results Reviewed Results Reviewed: Results - White blood cell count: 4.6 K/uL (Normal is 4.8). - Platelet count: Normal. - ESR: Elevated. - Hemoglobin A1c (last month): 5.8%. - Calcium, magnesium, liver enzymes (2 days ago): Normal. - CRP (2 days ago): Elevated. - Total cholesterol: 255 mg/dL. - Triglycerides: 205 mg/dL. - LDL: 162 mg/dL. - Vitamin D: 18.6 ng/mL. - Urinalysis: No sugar in the urine. - Rheumatoid Factor: Positive. - MELISSA: Pending. Coding Level of Care Code Est Pt Level 4 (28193) Add On Problem Visit Only Diagnoses Hypertension I10 Type 2 diabetes mellitus with hemoglobin A1c goal of less than 7.0% E11.9 Severe obesity with body mass index (BMI) of 36.0 to 36.9 with serious comorbidity E66.01; Z68.36 Pure hypercholesterolemia, unspecified E78.00 Rheumatoid factor positive R76.89 Additional Codes RITESH-7 Assessment Billing - RITESH-7 Assessment Tool: RITESH-7 Assessment 46946 ([id number]) PHQ-9 - 33562 - PHQ-9 Billing: Yes ([id number]) Assessment & Plan Assessment & Plan (1) Hypertension: Code(s): I10 - Essential (primary) hypertension Category: Medical Plan: The patient's blood pressure was 136/74 mmHg, which is on the higher side. She will continue taking amlodipine 5 mg and will monitor her blood pressure at home. An increase in her amlodipine dosage was discussed as an option if her home readings remain elevated. (2) Type 2 diabetes mellitus with hemoglobin A1c goal of less than 7.0%: Code(s): E11.9 - Type 2 diabetes mellitus without complications Category: Medical Plan: The patient's last HgbA1c was 5.8%, indicating good control from a previous level of over 7%. The patient agreed to increase her metformin to 500 mg twice a day. The plan is to gradually titrate the dose up to 2000 mg daily, potentially assisting with weight loss of 10-15 pounds. The patient will follow up to potentially increase the metformin dose again. A follow-up appointment is scheduled after September 15 to recheck her A1c. (3) Severe obesity with body mass index (BMI) of 36.0 to 36.9 with serious comorbidity: Code(s): E66.01 - Morbid (severe) obesity due to excess calories; Z68.36 - Body mass index [BMI] 36.0-36.9, adult Category: Medical Plan: A prior authorization for Zepbound was not approved by the patient's insurance, [employer]. A referral will be sent for a medical weight management consultation to explore other options and potentially get medication approved. The patient was given a script with instructions to call her insurance and inquire about coverage for other GLP-1 agonist medications. If needed for medication approval, a referral to endocrinology will be considered. (4) Pure hypercholesterolemia, unspecified: Code(s): E78.00 - Pure hypercholesterolemia, unspecified Category: Medical Plan: The patient's lab results showed elevated total cholesterol (255 mg/dL), triglycerides (205 mg/dL), and LDL (162 mg/dL). She has started cholesterol medication. Follow-up labs will likely be re-evaluated at her next appointment in 3 months. (5) Rheumatoid factor positive: Code(s): R76.89 - Other specified abnormal immunological findings in serum Category: Medical Plan: Lab work revealed elevated ESR and CRP, along with a positive rheumatoid factor. An MELISSA test is currently pending. The patient has a rheumatology referral for an appointment in November. An attempt will be made to expedite the rheumatology appointment if further lab abnormalities are found. Plan Plan Patient was informed and verbally consented to the use of an ambient scribe for clinic note documentation during this visit. 1. Hypertension The patient's blood pressure was 136/74 mmHg, which is on the higher side. She will continue taking amlodipine 5 mg and will monitor her blood pressure at home. An increase in her amlodipine dosage was discussed as an option if her home readings remain elevated. 2. Type 2 Diabetes Mellitus The patient's last HgbA1c was 5.8%, indicating good control from a previous level of over 7%. The patient agreed to increase her metformin to 500 mg twice a day. The plan is to gradually titrate the dose up to 2000 mg daily, potentially assisting with weight loss of 10-15 pounds. The patient will follow up to potentially increase the metformin dose again. A follow-up appointment is scheduled after September 15 to recheck her A1c. 3. Obesity A prior authorization for Zepbound was not approved by the patient's insurance, [employer]. A referral will be sent for a medical weight management consultation to explore other options and potentially get medication approved. The patient was given a script with instructions to call her insurance and inquire about coverage for other GLP-1 agonist medications. If needed for medication approval, a referral to endocrinology will be considered. 4. Hypercholesterolemia The patient's lab results showed elevated total cholesterol (255 mg/dL), triglycerides (205 mg/dL), and LDL (162 mg/dL). She has started cholesterol medication. Follow-up labs will likely be re-evaluated at her next appointment in 3 months. 5. Positive Rheumatoid Factor And Elevated Inflammatory Markers Lab work revealed elevated ESR and CRP, along with a positive rheumatoid factor. An MELISSA test is currently pending. The patient has a rheumatology referral for an appointment in November. An attempt will be made to expedite the rheumatology appointment if further lab abnormalities are found. Discussion Notes I advised the patient to monitor her blood pressure at home, as her in-office reading was 136/74 mmHg, and we discussed potentially increasing her amlodipine dose if readings remain high. We decided to increase her metformin to 500 mg twice daily, with a plan to titrate up to 2000 mg to improve her glycemic control and aid in weight loss. I explained that her insurance did not approve Zepbound for weight loss, and I provided her with a script to inquire about coverage for alternative GLP-1 medications. I will also place a referral to a medical weight management clinic to explore other avenues for medication approval. I discussed that if her insurance requires an professional security officer to prescribe these medications, I would make the referral, although it is not currently necessary for her diabetes management given her controlled A1c. I reviewed her recent lab results, noting the elevated inflammatory markers (ESR, CRP), positive rheumatoid factor, and pending MELISSA test. I informed her about the rheumatology referral and her appointment in November, and stated I would try to expedite it if necessary. We scheduled a follow-up appointment after September 15 to recheck her A1c and follow up on her mammogram. Orders: Referrals Medical Weight Management Referral E11.9 - Type 2 diabetes mellitus without complications, E66.01 - Morbid (severe) obesity due to excess calories, Z68.36 - Body mass index [BMI] 36.0-36.9, adult Medications: Changed From metformin 500 mg PO To metformin 500 mg PO BID 180 tabs 3RF 90 days Patient Instructions: Patient Instructions - Please check your blood pressure at home or at work and let us know the readings. - Increase your metformin to 500 mg twice a day. - Contact the office next month to let us know how you are doing on the new metformin dose so we can consider increasing it again. - Call your insurance company to ask about coverage for the weight loss medications listed on the sheet I gave you. - You will be contacted by the medical weight management team to schedule an appointment. - Keep your rheumatology appointment in November. We will try to get you seen sooner if your lab tests show it is necessary. - Make sure to get your mammogram done before your next appointment. - Schedule a follow-up visit for after September 15 to check your A1c. - You have enough refills for your medications. Please call if you need anything before your next appointment.
[2025-07-06 15:39] VITALS: BP 136/74; PULSE 72
--- OUTSIDE RECORDS SUMMARY | 2025-07-06 22:51 | XMS_ITS | Clinical Summary ---
Author Organization [facility] Address [address] [place] [address] Phone Care Team Providers Care Financial Analysis Consultant Name Role Phone Physician, No Pcp Primary [...] to direct LDL (01/28/2025 6:46 AM EDT) [facility] Cholesterol 261(H) 0 - 200 mg/dL LAB CHEMISTRY METHOD 01/28/2025 7:58 AM EDT [facility] Triglycerides 149 <150 mg/dL LAB CHEMISTRY METHOD 01/28/2025 7:58 AM EDT [facility] HDL 51 37 - 92 mg/dL LAB CHEMISTRY METHOD 01/28/2025 7:58 AM EDT [facility] LDL Calculated 180(H) 50 - 130 mg/dL LAB CHEMISTRY METHOD 01/28/2025 7:58 AM EDT [facility] VLDL Cholesterol Freedom 29.8 mg/dL LAB CHEMISTRY METHOD 01/28/2025 7:58 AM EDT [facility] Comment:No established refer ence range. Blood Venous blood specimen / Unknown Venipuncture / Unknown 01/28/2025 6:46 AM EDT 01/28/2025 7:21 AM EDT Aure Dickinson MD LAB BLOOD ORDERABLE S Final Result [facility] [address] [place] [address], [place] [phone] * Basic metabolic panel (01/28/2025 6:46 AM EDT) Sodium 139 135 - 145 mmol/L LAB CHEMISTRY METHOD 01/28/2025 7:58 AM EDT [facility] Potassium 3.8 3.5 - 5.1 mmol/L LAB CHEMISTRY METHOD 01/28/2025 7:58 AM EDT [facility] Chloride 104 98 - 107 mmol/L LAB CHEMISTRY METHOD 01/28/2025 7:58 AM EDT [facility] CO2 27 24 - 32 mmol/L LAB CHEMISTRY METHOD 01/28/2025 7:58 AM EDT [facility] Anion Gap 8 5 - 14 LAB CHEMISTRY METHOD 01/28/2025 7:58 AM EDT [facility] Glucose 93 70 - 199 mg/dL LAB CHEMISTRY METHOD 01/28/2025 7:58 AM EDT [facility] BUN 13 7 - 17 mg/dL LAB CHEMISTRY METHOD 01/28/2025 7:58 AM EDT [facility] Creatinine 0.80 0.50 - 1.00 mg/dL LAB CHEMISTRY METHOD 01/28/2025 7:58 AM EDT [facility] eGFR 88 >=60 mL/min/1. 73m2 LAB CHEMISTRY METHOD 01/28/2025 7:58 AM EDT [facility] Comment:Calculation based on the Chronic Kidney Disease Epidemiology Collaboration (CKD-EPI) equation refit without adjustment for race. BUN/Creatinine Ratio 16.3 12.0 - 20.0 LAB CHEMISTRY METHOD 01/28/2025 7:58 AM EDT [facility] Calcium 8.7 8.4 - 10.2 mg/dL LAB CHEMISTRY METHOD 01/28/2025 7:58 AM EDT [facility] Blood Venous blood specimen / Unknown Venipuncture / Unknown 01/28/2025 6:46 AM EDT 01/28/2025 7:21 AM EDT Aure Dickinson MD LAB BLOOD ORDERABLE S Final Result [facility] [address] [place] [address], [place] [phone] from Last 3 Months or Most Recently [...] currently active code status orders. Care Teams Financial Analysis Consultant Relationship Specialty Start Date End Date Physician, No Pcp PCP - General 01/27/25
--- OUTSIDE RECORDS SUMMARY | 2025-07-06 22:51 | XMS_ITS | Clinical Summary ---
Author Organization [facility] [employer] Address [address] [place] [address] Care Team Providers Care Boring Inspector Name Role Phone Pcp, No Primary Care Provider [phone] Immunizations Immunization Administration Dates Next Due PPD Test 10/08/2024 Social History Tobacco Use Types Packs/Day Years Used Date Smoking Tobacco: Never Assessed Comments Unknown Sex and Gender Information Value Date Recorded Sex Assigned at Not on file Legal Sex Female 11:35 PM EDT Gender Identity Not on file Sexual Orientation Not on file Plan of Treatment Health Maintenance Due Date Last Done Comments Colorectal Cancer: COLONOSCO PY Screening every 10 yrs (or Modifier) 1971 Depression: Screening Annual ly using PHQ-2/9 in Adults 18 yrs or above (or HM Modifier)([facility]) 1989 Hepatitis C Virus Infection in Adolescents and Adults: Screening (or Modifier) ([facility]) 1989 SDMI Screening Reminder: Jodi ulises for all adults ([facility]) 1989 Tobacco Smoking Cessation: i n Adults excluding Women: Behavioral and Pharmacotherapy Interventions ([facility]) 1989 Cervical Cancer Screenin 1-65 yrs of age (or Modifier) 1992 Cervical Cancer Screening: P ap every 3 yrs pts age 21-65 1992 Cervical Cancer: Pap Screeni ng with Modifier timing ([facility]) 1992 Cervical Cancer: hrHPV alone or with cotesting Pap for Pts 30-65yrs screening every 5yrs ([facility]) 1992 Colorectal Cancer Screening 45 -75 Yrs (or HM Modifier) 2016 Colorectal Cancer: FLEXIBLE SIGMOIDOSCOPY Screening every 5 yrs 2016 Colorectal Cancer: Fecal Imm unochemical Test (FIT) Annually [facility] 2016 Colorectal Cancer: High-sens itivity gFOBT Screening Annually [facility] 2016 Colorectal Cancer: Stool Col oguard Screening every 3 yrs 2016 Colorectal Cancer:CT Colonog qian Screening every 5 yrs 2016 Breast Cancer: Screening Jodi ually age 50-74 yrs (or HM Modifier)([facility]) 2021 Pneumococcal Vaccination Scr eening: Patients 50+ yrs of age ([facility]) (1 of 1 - PCV) 2021 Zoster/Shingles Vaccine Seri es Screening: Adults aged 18+ yrs (or HM Modifiers)([facility]) (1 of 2) 2021 Flu Vaccination: Yearly for ages 18mos through 64 years (or Modifier)([facility]) 02/24/2025 COVID-19 Vaccine Screening: Initial Series and Booster Status ([facility]) (3 - 2024- season) 2025 06/15/2021, 07/26/2020 DTaP/Tdap/Td Vaccines ([facility]) (2 - Td or Tdap) 01/21/2028 01/20/2018 [employer] Devices Not on file [place] [address] [place] [address] Care Teams Boring Inspector Relationship Specialty Start Date End Date Pcp, No PCP - General Family Medicine 10/08/24
== END 2025-07-06 15:49 | disposition home or self-care (01) ==
LOC: HO.HMCSH 15:17
PROVIDERS: PCP Physician Assistant Medical; Visit Provider Physician Assistant Medical
DX: I10 Essential (primary) hypertension (principal); E11.9 Type 2 diabetes mellitus without complications; E66.01 Morbid (severe) obesity due to excess calories; Z68.36 Body mass index [BMI] 36.0-36.9, adult; E78.00 Pure hypercholesterolemia, unspecified; R76.89 Other specified abnormal immunological findings in serum

== ENCOUNTER → 2025-07-06 15:17 | Outpatient (BNVA) | payer OTHER, SELFPAY | PROVIDERS: PCP Physician Assistant Medical; Visit Provider Physician Assistant Medical | DX: Z13.31 Encounter for screening for depression (principal); Z13.39 Encounter for screening examination for other mental health and behavioral disorders | CPT/HCPCS: 96127 ==

== ENCOUNTER → 2025-07-19 14:20 | Outpatient (REF) | payer OTHER, SELFPAY ==
--- NOTE | 2025-07-19 14:22 | CA_ITS ---
Transthoracic Echocardiogram Patient (Last, First, Middle): Sandi Thompson Marie Gender: F Date of : 1970 Age: 55 Procedure Date: 07/19/2025 Procedure Type: Transthoracic Echocardiogram Location: OP Height: 160.02 cm Weight: 93.9 kg BSA: 1.96 m2 Heart Rate: bpm BP: 140 / 73 mmHg Room Worker: CHRISTY Referring MD: Jaqui Zayas PA-C Ase Certified Technician: Pascual Mckeon MD Symptoms: R01.1 - Cardiac murmur, unspecified Study Quality: Fair, contrast ECG Rhythm: Sinus Conclusions: - 1. Normal LV systolic function with impaired relaxation pattern 2. Normal LV systolic function 3. No pericardial effusion Findings Procedure Information Contrast agent, definity, is being given per protocol without apparent complications. Left Ventricle Normal left ventricular size, thickness, and systolic function. The visually estimated ejection fraction is between 60-65%. Spectral Doppler is indicative of an impaired relaxation filling pattern. E/E prime ratio is between 8 and 15 consistent with indeterminate filling pressures. Right Ventricle Normal right ventricular cavity size and systolic function. Atria Both atria are normal in size. There is no evidence of interatrial shunt. Aortic Valve Normal aortic valve structure and function. There is no aortic valve stenosis. There is no aortic valve regurgitation. Mitral Valve Normal mitral valve structure and function. There is trace mitral valve regurgitation. There is no mitral valve stenosis. Pulmonic Valve The pulmonic valve is likely normal. Tricuspid Valve Normal tricuspid valve structure. Tricuspid regurgitation envelope is inadequate for calculation of right ventricular systolic pressure. Normal right atrial pressure. Great Vessels All visible segments of the aorta are normal in size. The pulmonary artery was not well visualized. There is no dilatation of the ascending aorta measuring 3.00 cm. Venous The inferior vena cava is normal in size and collapses greater than 50% with inspiration. Pericardium/Pleural There is no evidence of pericardial effusion. Prior Study Comparison No prior study available for comparison. Measurements 2D Linear Measurements IVSd: 0.76 0.6-0.9/0.6-1.0 cm LVIDd: 4.87 3.9-5.3/4.2-5.9 cm LVIDd Index: 2.48 2.4-3.2/2.2-3.1 cm/m2 LVIDs: 3.05 2.0-3.6 cm LVPWd: 0.69 0.7-1.1 cm LA Diam: 3.40 2.7-3.8/3.0-4.0 cm LAIDs Index: 1.73 1.5-2.3 cm/m2 LV Mass: 142.54 67-162/88-224 g LV Mass Index: 72.72 43-95/49-115 g/m2 LVOT Diam: 2.00 3.0+(-)1.3 cm 2D Systolic Function EF 4C: 59.40 >55% EF 2C: 67.80 >55% EF BiP: 63.00 >55% Mitral Valve MV Pk E: 0.69 MV PK A: 1.00 MV Decel Time: 209.00 E/A: 0.70 E'Lateral: 8.38 E'Medial: 6.74 E/E' Med: 10.20 E/E' Lat: 8.20 PHT: 61.00 MVA PHT: 3.61 Decel Dooly: 3.31 Aortic Valve AoV Pk Lam: 1.54 AoV Mn Lam: 1.04 AoV VTI: 0.28 AoV Pk Grad: 9.00 Aov Mn Grad: 5.00 SIERRA Cont.VTI: 2.50 LVOT LVOT Pk Lam: 1.23 LVOT Mn Lam: 0.84 LVOT VTI: 0.22 LVOT Pk Grad: 6.00 LVOT Mn Grad: 3.00 LVOT Diam: 2.00 LVOT Area: 3.14 Diastolic Function MV Pk E: 0.69 MV Pk A: 1.00 E/A: 0.70 E'Medial: 6.74 E/E' Med: 10.20 E' Laterial: 8.38 E/E' Lat: 8.20 Right Ventricle TAPSE (mm): 22.40 TVS' Lam: 10.20 Tricuspid Valve RA Press: 3.00 Great Vessels Aorta Sinus of Valsalva: 2.80 2.0-3.[address] Ridge: 2.62 1.7-3.4 cm Ao Asc: 3.00 2.1-3.4 cm Updated in Other Vendor System with Status of Final Pascual Mckeon MD electronically signed on 07/19/2025 3:48:41 PM with status of Final
--- OUTSIDE RECORDS SUMMARY | 2025-07-19 14:23 | XMS_ITS | Clinical Summary ---
Author Organization [facility] Address [address] [place] [address] Phone Care Team Providers Care Dairy Laboratory Technician Name Role Phone Physician, No Pcp Primary Care Provider Unavaila ble Allergies Active Allergy Reactions Criticality Noted Date Comments Apple Hives 01/28/2025 Sulfamethoxazole-Trimethoprim 2024 Ciprofloxacin 01/27/2025 Medications albuterol HFA (PROAIR HFA ; PROVENTIL HFA ; VENTOLIN HFA) 90 mcg/actuation inhaler Inhale 1 puff by mouth every 4 (four) hours if needed. 4 Active amLODIPine (NORVASC) 5 mg tablet Take [...] 2 (two) times a day with meals. 5 Active Nurtec 75 mg dispersible tabletIndication s:Chronic migraine without aura without status migrainosus, not intractable TAKE ONE (1) TABLET BY MOUTH ONCE DAILY NEEDED FOR MIGRAINE 16 tablet 2 Active Active Problems Problem Noted Date Diagnosed Date [...] to direct LDL (01/28/2025 6:46 AM EDT) Cholesterol 261(H) 0 - 200 mg/dL LAB CHEMISTRY METHOD 01/28/2025 7:58 AM EDT [facility] Triglycerides 149 <150 mg/dL LAB CHEMISTRY METHOD 01/28/2025 7:58 AM EDT [facility] HDL 51 37 - 92 mg/dL LAB CHEMISTRY METHOD 01/28/2025 7:58 AM EDT [facility] LDL Calculated 180(H) 50 - 130 mg/dL LAB CHEMISTRY METHOD 01/28/2025 7:58 AM EDT [facility] VLDL Cholesterol Freedom 29.8 mg/dL LAB CHEMISTRY METHOD 01/28/2025 7:58 AM EDT [facility] Comment:No established refer ence range. Blood Venous blood specimen / Unknown Venipuncture / Unknown 01/28/2025 6:46 AM EDT 01/28/2025 7:21 AM EDT Aure Dickinson MD LAB BLOOD ORDERABLE S Final Result [facility] [address] [place] [address], [place] [phone] * Basic metabolic panel (01/28/2025 6:46 AM EDT) Sodium 139 135 - 145 mmol/L LAB CHEMISTRY METHOD 01/28/2025 7:58 AM EDT [facility] Potassium 3.8 3.5 - 5.1 mmol/L LAB CHEMISTRY METHOD 01/28/2025 7:58 AM EDT [facility] Chloride 104 98 - 107 mmol/L LAB CHEMISTRY METHOD 01/28/2025 7:58 AM EDT [facility] CO2 27 24 - 32 mmol/L LAB CHEMISTRY METHOD 01/28/2025 7:58 AM EDT [facility] Anion Gap 8 5 - 14 LAB CHEMISTRY METHOD 01/28/2025 7:58 AM EDT [facility] Glucose 93 70 - 199 mg/dL LAB CHEMISTRY METHOD 01/28/2025 7:58 AM EDT [facility] BUN 13 7 - 17 mg/dL LAB CHEMISTRY METHOD 01/28/2025 7:58 AM EDT [facility] Creatinine 0.80 0.50 - 1.00 mg/dL LAB CHEMISTRY METHOD 01/28/2025 7:58 AM EDT [facility] eGFR 88 >=60 mL/min/1. 73m2 LAB CHEMISTRY METHOD 01/28/2025 7:58 AM EDT [facility] Comment:Calculation based on the Chronic Kidney Disease Epidemiology Collaboration (CKD-EPI) equation refit without adjustment for race. BUN/Creatinine Ratio 16.3 12.0 - 20.0 LAB CHEMISTRY METHOD 01/28/2025 7:58 AM EDT [facility] Calcium 8.7 8.4 - 10.2 mg/dL LAB CHEMISTRY METHOD 01/28/2025 7:58 AM EDT [facility] Blood Venous blood specimen / Unknown Venipuncture / Unknown 01/28/2025 6:46 AM EDT 01/28/2025 7:21 AM EDT us Aure Dickinson MD LAB BLOOD ORDERABLE S Final Result [facility] [address] [place] [address], [place] [phone] from Last 3 Months or Most Recently [...] currently active code status orders. Care Teams Dairy Laboratory Technician Relationship Specialty Start Date End Date Physician, No Pcp PCP - General 01/27/25
--- OUTSIDE RECORDS SUMMARY | 2025-07-19 14:23 | XMS_ITS | Clinical Summary ---
Author Organization [facility] [employer] [facility] [employer] Address [address] [place] [address] Care Team Providers Care Shotblast Equipment Operator Name Role Phone Pcp, No Primary Care Provider [phone] Immunizations Immunization Administration Dates Next Due PPD [...] Adults 18 yrs or above (or HM Modifier)([facility]) 1989 Hepatitis C Virus Infection in Adolescents and Adults: Screening (or Modifier) ([facility]) 1989 SDMS Screening Reminder: Jodi ulises for all adults ([facility]) 1989 Tobacco Smoking Cessation: i n Adults excluding Women: Behavioral and Pharmacotherapy Interventions ([facility]) 1989 Cervical Cancer Screenin 1-65 yrs of age (or Modifier) 1992 Cervical Cancer Screening: P ap every 3 yrs pts age 21-65 1992 Cervical Cancer: Pap Screeni ng with Modifier timing ([facility]) 1992 Cervical Cancer: hrHPV alone or with cotesting Pap for Pts 30-65yrs screening every 5yrs ([facility]) 1992 Colorectal Cancer Screening 45 -75 Yrs (or HM Modifier) 2016 Colorectal Cancer: FLEXIBLE SIGMOIDOSCOPY Screening every 5 yrs 2016 Colorectal Cancer: Fecal Imm unochemical Test (FIT) Annually [facility] 2016 Colorectal Cancer: High-sens itivity gFOBT Screening Annually [facility] 2016 Colorectal Cancer: Stool Col oguard Screening every 3 yrs 2016 Colorectal Cancer:CT Colonog qian Screening every 5 yrs 2016 Breast Cancer: Screening Jodi ually age 50-74 yrs (or HM Modifier)([facility]) 2021 Pneumococcal Vaccination Scr eening: Patients 50+ yrs of age ([facility]) (1 of 1 - PCV) 2021 Zoster/Shingles Vaccine Seri es Screening: Adults aged 18+ yrs (or HM Modifiers)([facility]) (1 of 2) 2021 Flu Vaccination: Yearly for ages 18mos through 64 years (or Modifier)([facility]) 02/24/2025 COVID-19 Vaccine Screening: Initial Series and Booster Status ([facility]) (3 - 2024- season) 2025 06/15/2021, 07/26/2020 DTaP/Tdap/Td Vaccines ([facility]) (2 - Td or Tdap) 01/21/2028 01/20/2018 [employer] Not on file [place] [address] Care Teams Shotblast Equipment Operator Relationship Specialty Start Date End Date Pcp, No PCP - General Family Medicine 10/08/24
== END ==
LOC: HO.CARD 14:20
PROVIDERS: PCP Physician Assistant Medical; Visit Provider Physician Assistant Medical
DX: R01.1 Cardiac murmur, unspecified (principal); E78.2 Mixed hyperlipidemia
CPT/HCPCS: 93306; Q9957

== ENCOUNTER → 2025-07-19 14:22 | Outpatient (BNV) | payer OTHER, SELFPAY | PROVIDERS: PCP Physician Assistant Medical; Visit Provider Internal Medicine Cardiovascular Disease | DX: R01.1 Cardiac murmur, unspecified (principal) | CPT/HCPCS: 93306 ==